=== PATIENT | male | born 1995 | race Two or more races ===

== ENCOUNTER 2021-10-15 20:21 | Emergency (ER) | payer MEDICAID ==
[~2021-10-15] VITALS: Ht 188 cm; Wt 174.4 kg
[2021-10-15] MEDS ORDERED: KETOROLAC 30MG/ML VIAL IM ONE (23:30)
[2021-10-16] MEDS ORDERED: CLINDAMYCIN HCL 150MG CAPSULE PO SCH (00:30)
[2021-10-16 00:52] LABS: CLARITY URINE CLEAR (CLEAR); COLOR URINE YELLOW (YELLOW); KETONES URINE 4+ (NEGATIVE); LEUKOCYTE ESTERASE URINE TRACE (NEGATIVE); NITRITE URINE NEGATIVE (NEGATIVE); OCCULT BLOOD URINE 1+ (NEGATIVE); PROTEIN URINE 1+ (NEGATIVE); SPECIFIC GRAVITY URINE 1.039 (1.005-1.030); UROBILINOGEN URINE 0.2 E.U./dL (0.2-1.0)
[2021-10-16] MEDS ORDERED: HYDR-4233 TP (01:46)
[2021-10-16] MEDS ORDERED: IBUP-2030 MT (01:46)
[2021-10-16] MEDS ORDERED: METF-414 MT (01:46)
[2021-10-16] MEDS ORDERED: CLOT15CR27 TP (01:46)
[2021-10-16 02:00] VITALS: BP 141/66
== END 2021-10-16 02:01 | disposition home or self-care (01) ==
LOC: ER 20:21
DX: N47.1 Phimosis (principal); R21 Rash and other nonspecific skin eruption
CPT/HCPCS: 81003; 82962; 96372; 99283; J1885